=== PATIENT | female | born 1970 | race Caucasian/White ===

== ENCOUNTER 2022-06-05 15:15 | Emergency (ER) | payer MEDICARE, MEDICAID, SELFPAY ==
--- NOTE | ~2022-06-05 | XR_ITS ---
EXAMINATION: XR elbow LT min 3V DATE: 06/05/2022 15:43 INDICATION: Left elbow pain and swelling. Fall. TECHNIQUE: 4 views of left elbow were obtained. COMPARISON: None. FINDINGS: Bone alignment is normal. No fracture. There is mild elbow joint osteoarthritis. There is a n enthesophyte at medial humeral epicondyle. No elbow joint effusion. IMPRESSION: 1. No fracture. Reviewed, dictated and finalized at location A. IMPRESSION: 1. No fracture.
[2022-06-05 15:25] VITALS: BP 152/91; PULSE 106; RESP 18; TEMP 36.5; O2SAT 99
--- NOTE | 2022-06-05 15:38 | ED.UPPEXIN ---
HPI - Extremity Injury (Upper) General Chief Complaint: Extremity Injury, Upper Stated Complaint: Fall Injury/Left Elbow Time Seen by Provider: 06/05/22 15:39 Source: patient, family, RN notes reviewed and old records reviewed Mode of arrival: ambulatory Limitations: no limitations History of Present Illness HPI narrative: 51 year old female presents to [facility] with complaint of left elbow pain which is sharp and aching, rates her pain a 6/10, Patient states initially she hit her left elbow on something May 08, last week accidentally hit her left elbow on something also, then today she fell landing on her left elbow. Patient voices pain and swelling with some redness to left elbow region with radiation up into her upper arm rates pain 6/10. She has taken some Tylenol for her discomfort. Patient reports that she is having a hard time holding onto anything with left hand. MD complaint: injury to: left and elbow Onset (ago): week(s) (with reinjury today with fall) Severity scale (1-10): 6 Treatments prior to arrival: other (Tylenol) Related Data Home Medications Medication Instructions Recorded Confirmed Vitamin D3 06/05/22 albuterol sulfate 90 mcg/actuation 90 mcg inhalation Q4-6H PRN 06/05/22 06/05/22 aerosol inhaler Shortness Of Breath Or Wheezing alprazolam 0.5 mg tablet 0.5 mg PO HS 06/05/22 06/05/22 amitriptyline 10 mg tablet 10 mg PO DAILY 06/05/22 06/05/22 apixaban 5 mg tablet (Eliquis) 5 mg PO BID 06/05/22 06/05/22 aspirin 325 mg tablet 325 mg PO DAILY 06/05/22 06/05/22 atorvastatin 40 mg tablet 40 mg PO DAILY 06/05/22 06/05/22 duloxetine 30 mg capsule,delayed 30 mg PO DAILY 06/05/22 06/05/22 release duloxetine 60 mg capsule,delayed 60 mg PO DAILY 06/05/22 06/05/22 release gabapentin 600 mg tablet 600 mg PO TID 06/05/22 06/05/22 insulin glargine 100 unit/mL (3 unit subcut 06/05/22 mL) subcutaneous pen (Lantus Solostar U-100 Insulin) insulin lispro 100 unit/mL See Rx Instructions .Route .COMPLEX 06/05/22 06/05/22 subcutaneous pen (Humalog KwikPen (U-100) Insulin) isosorbide mononitrate 30 mg 30 mg PO DAILY 06/05/22 06/05/22 tablet,extended release 24 hr omeprazole 40 mg capsule,delayed mg 06/05/22 release Allergies Allergy/AdvReac Type Severity Reaction Status Date / Time Sulfa (Sulfonamide Allergy Mild Itching Verified 06/05/22 15:37 Antibiotics) morphine Allergy Unknown Itching Unverified 06/05/22 15:37 Mushroom Allergy Mild Unknown Uncoded 06/05/22 15:37 Review of Systems Review of Systems: CONSTITUTIONAL: Denies fever, chills, or sweats. CARDIOVASCULAR: Denies chest pain, palpitations, or edema. RESPIRATORY: Denies cough or dyspnea. SKIN: Denies rash or itching. Denies lacerations or abrasions MUSCULOSKELETAL: Reports pain and injury to her left elbow region since May 08 with fall today with reinjury. NEUROLOGIC: Denies numbness, or weakness. All systems reviewed & are unremarkable except as noted in HPI and below PMFSH Past Medical History Medical History (Updated 06/07/22 @ 08:12 by Day Pollack NP) Arthritis Breast cancer Degenerative disc disease Diabetes GERD (gastroesophageal reflux disease) Hx of migraines Hypertension Surgical History Surgical History (Updated 06/07/22 @ 08:15 by Day Pollack NP) H/O Spinal surgery H/O: hysterectomy History of cholecystectomy History of heart artery stent Hx of mastectomy double Previous section Social History Social History (Updated 06/07/22 @ 08:10 by Day Pollack NP) Smoking status: Former smoker Additional smoking assessment comments: quit 6-7 months ago Alcohol intake: unknown Substance use type: does not use Living arrangements: with family Gender identity (if verbalized by the patient): Female Comments At time of signature, agree with nursing past medical, surgical, social and family history. There is no relevant family history pertinent to the pres
--- NOTE | 2022-06-05 15:44 | PC.NURSE ---
UNABLE TO OFFER PT ICE FOR COMFORT DUE TO BROKEN ICE MACHINE AT FACILITY
== END 2022-06-05 16:11 | disposition home or self-care (01) ==
PROVIDERS: Emergency Provider Registered Nurse
DX: S50.02XA Contusion of left elbow, initial encounter (principal); W19.XXXA Unspecified fall, initial encounter; M19.90 Unspecified osteoarthritis, unspecified site; E11.9 Type 2 diabetes mellitus without complications; K21.9 Gastro-esophageal reflux disease without esophagitis; I10 Essential (primary) hypertension; Z85.3 Personal history of malignant neoplasm of breast; Z95.5 Presence of coronary angioplasty implant and graft; Z90.13 Acquired absence of bilateral breasts and nipples; Z87.891 Personal history of nicotine dependence
CPT/HCPCS: 73080; 99203; G0463

== ENCOUNTER 2022-07-02 19:36 | Emergency (ER) | payer MEDICARE, MEDICAID, SELFPAY ==
--- NOTE | 2022-07-02 19:38 | ED.LOWEXIN ---
HPI - Extremity Injury (Lower) General Chief Complaint: Extremity Injury, Lower Stated Complaint: right ankle injury Time Seen by Provider: 07/02/22 19:38 Source: patient, family and RN notes reviewed History of Present Illness HPI Narrative: patient is a 51-year-old female who presents to the Urgent Care with complaints of right ankle pain, swelling and bruising after a syncopal episode at 3:00 p.m. this afternoon. Patient states that she did not come to the facility because she was watching the swelling . Patient states she is putting heat on the injury. Patient is unsure of why she passed out and is unsure if she hit her head however her son states that they tried to avoid hitting her head . Patient does not remember the incident. No other acute complaints. No acute distress noted. Patient aware of the plan of care. Some parts of this dictation were generated by voice recognition software and may contain typographical and/or grammatical inaccuracies. Related Data Home Medications Medication Instructions Recorded Confirmed Vitamin D3 06/05/22 albuterol sulfate 90 mcg/actuation 90 mcg inhalation Q4-6H PRN 06/05/22 06/05/22 aerosol inhaler Shortness Of Breath Or Wheezing alprazolam 0.5 mg tablet 0.5 mg PO HS 06/05/22 06/05/22 amitriptyline 10 mg tablet 10 mg PO DAILY 06/05/22 06/05/22 apixaban 5 mg tablet (Eliquis) 5 mg PO BID 06/05/22 06/05/22 aspirin 325 mg tablet 325 mg PO DAILY 06/05/22 06/05/22 atorvastatin 40 mg tablet 40 mg PO DAILY 06/05/22 06/05/22 duloxetine 30 mg capsule,delayed 30 mg PO DAILY 06/05/22 06/05/22 release duloxetine 60 mg capsule,delayed 60 mg PO DAILY 06/05/22 06/05/22 release gabapentin 600 mg tablet 600 mg PO TID 06/05/22 06/05/22 insulin glargine 100 unit/mL (3 unit subcut 06/05/22 mL) subcutaneous pen (Lantus Solostar U-100 Insulin) insulin lispro 100 unit/mL See Rx Instructions .Route .COMPLEX 06/05/22 06/05/22 subcutaneous pen (Humalog KwikPen (U-100) Insulin) isosorbide mononitrate 30 mg 30 mg PO DAILY 06/05/22 06/05/22 tablet,extended release 24 hr omeprazole 40 mg capsule,delayed mg 06/05/22 release Allergies Allergy/AdvReac Type Severity Reaction Status Date / Time Sulfa (Sulfonamide Allergy Mild Itching Verified 06/05/22 15:37 Antibiotics) morphine Allergy Unknown Itching Unverified 06/05/22 15:37 Mushroom Allergy Mild Unknown Uncoded 06/05/22 15:37 Review of Systems Review of Systems: CONSTITUTIONAL: Denies fever, chills, or sweats. EYES: Denies visual changes, redness, or discharge. ENT: Denies rhinorrhea, congestion, sore throat, or otalgia. CARDIOVASCULAR: Denies chest pain, palpitations, or edema. RESPIRATORY: Denies cough or dyspnea. GASTROINTESTINAL: Denies abdominal pain, nausea, vomiting, or diarrhea. GENITOURINARY: Denies dysuria or hematuria. SKIN: Denies rash or itching. MUSCULOSKELETAL: reports of right ankle pain and swelling NEUROLOGIC: Denies headache, numbness, or weakness. reports a syncopal episode All other systems reviewed are negative, except as documented in HPI. [facility] Past Medical History Medical History (Updated 07/02/22 @ 19:55 by MARTY Chong) Arthritis Breast cancer Degenerative disc disease Diabetes GERD (gastroesophageal reflux disease) Hx of migraines Hypertension Surgical History Surgical History (Updated 06/07/22 @ 08:15 by Day Pollack NP) H/O Spinal surgery H/O: hysterectomy History of cholecystectomy History of heart artery stent Hx of mastectomy double Previous section Social History Social History (Updated 06/07/22 @ 08:10 by Day Pollack NP) Smoking status: Former smoker Additional smoking assessment comments: quit 6-7 months ago Alcohol intake: unknown Substance use type: does not use Gender identity (if verbalized by the patient): Female Comments At the time of my signature, I reviewed and agree with the nursing past medical, surgi
[2022-07-02 19:53] VITALS: BP 94/51; PULSE 126; RESP 20; TEMP 36.1; O2SAT 98
== END 2022-07-02 20:05 | disposition short-term general hospital (02) ==
PROVIDERS: Emergency Provider Nurse Practitioner Family
DX: M25.571 Pain in right ankle and joints of right foot (principal); R55 Syncope and collapse; I10 Essential (primary) hypertension; E11.9 Type 2 diabetes mellitus without complications; Z79.4 Long term (current) use of insulin; Z85.3 Personal history of malignant neoplasm of breast; Z87.891 Personal history of nicotine dependence
CPT/HCPCS: 99213; G0463